=== PATIENT | male | born 1975 | race Caucasian/White ===

== ENCOUNTER 2019-07-10 18:20 | Emergency (ER) | payer OTHER ==
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
--- NOTE | 2019-07-11 08:02 | CR ---
Chest: Two views of the chest were obtained. Comparison: No prior chest imaging is available. Heart size and mediastinum are normal. Lungs are clear. Bony structures are unremarkable for the patient's age. Impression: 1. Nothing acute is appreciated on two-view chest x-ray. Diagnostic code #1 This report was dictated in [place] Standard Time
== END 2019-07-10 21:00 | disposition home or self-care (01) ==
LOC: JD.ED 18:20
DX: M54.12 Radiculopathy, cervical region (principal); R73.9 Hyperglycemia, unspecified
CPT/HCPCS: 36415; 71046; 71046-26; 80053; 84484; 85025; 85379; 93005; 93010; 99283; 99285-25